=== PATIENT | male | born 1990 | race African-American/Black ===

== ENCOUNTER 2019-03-15 16:55 | Emergency (ER) | payer SELFPAY ==
[~2019-03-15] VITALS: Ht 167.6 cm; Wt 80.0 kg
[~2019-03-15 16:55] MED LIST: AMOXICILLIN500 MG OR; AMOXICILLIN500 MG PO; AMOXIL500 MG OR; BUPROPION150 MG PO; CEPHALEXIN500 MG PO; CLARITIN10 M1 PO; CLARITIN10 M2 OR; CORTISPORIN OP7.5 ML OP; FLONASE NASAL50 MCG; HYDROXYZ HCL25 MG OR; NO MEDS; OTC ALLERGY MEDS; ULTRAM50 M1 PO
[2019-03-15] MEDS ORDERED: AMOXICILLIN500 M2 PO (17:26)
[2019-03-15 18:17] VITALS: BP 136/89
== END 2019-03-15 18:25 | disposition home or self-care (01) | DRG 159 ==
LOC: ED 16:55
DX: K08.89 Other specified disorders of teeth and supporting structures (principal); S16.1XXA Strain of muscle, fascia and tendon at neck level, initial encounter; X58.XXXA Exposure to other specified factors, initial encounter

== ENCOUNTER 2019-04-19 12:49 | Emergency (ER) | payer SELFPAY ==
[~2019-04-19] VITALS: Ht 167.6 cm; Wt 77.3 kg
[~2019-04-19 12:49] MED LIST changes: +AMOXICILLIN500 M2 PO
[2019-04-19] MEDS ORDERED: AMOXICILLIN500 MG PO ×2 (13:29→13:54)
[2019-04-19 13:59] VITALS: BP 121/81
== END 2019-04-19 13:59 | disposition home or self-care (01) | DRG 159 ==
LOC: ED 12:49
DX: K04.7 Periapical abscess without sinus (principal); K08.89 Other specified disorders of teeth and supporting structures

== ENCOUNTER 2019-07-24 00:25 | Emergency (ER) | payer SELFPAY ==
[~2019-07-24] VITALS: Ht 167.6 cm; Wt 82.0 kg
[2019-07-24 01:55] LABS: BARBITURATES NEGATIVE (NEGATIVE); COCAINE NEGATIVE (NEGATIVE); METHADONE NEGATIVE (NEGATIVE); TETRAHYDROCANNABIONOL NEGATIVE (NEGATIVE); TRICYLIC ANTIDEPRESSANTS NEGATIVE (NEGATIVE)
[2019-07-24 01:56] LABS: OXCYCODONE NEGATIVE (NEGATIVE)
[2019-07-24] MEDS ORDERED: IBUPROFEN600 MG PO (02:58)
[2019-07-24] MEDS ORDERED: ALLERGY EYE DRO1 DRO OU (02:58)
[2019-07-24] MEDS ORDERED: BENADRYL 50MG C50 MG PO (02:58)
[2019-07-24 03:38] VITALS: BP 121/70
== END 2019-07-24 03:38 | disposition home or self-care (01) | DRG 125 ==
LOC: ED 00:25
PROVIDERS: Emergency Medicine
DX: H10.9 Unspecified conjunctivitis (principal); F19.10 Other psychoactive substance abuse, uncomplicated

== ENCOUNTER 2020-10-24 06:05 | Emergency (ER) | payer SELFPAY ==
[~2020-10-24] VITALS: Ht 165.1 cm; Wt 86.0 kg
[~2020-10-24 06:05] MED LIST changes: +ALLERGY EYE DRO1 DRO OU; +BENADRYL 50MG C50 MG PO; +IBUPROFEN600 MG PO
[2020-10-24 08:10] VITALS: BP 116/73
== END 2020-10-24 08:12 | disposition left against medical advice (07) | DRG 392 ==
LOC: ED 06:05
DX: R11.2 Nausea with vomiting, unspecified (principal); R51.9 Headache, unspecified

== ENCOUNTER 2020-12-19 13:35 | Emergency (ER) | payer SELFPAY ==
[~2020-12-19] VITALS: Ht 165.1 cm; Wt 84.0 kg
[2020-12-19] MEDS ORDERED: AMOXICILLIN500 M2 PO (15:22)
[2020-12-19 15:27] VITALS: BP 137/83
== END 2020-12-19 16:25 | disposition home or self-care (01) | DRG 816 ==
LOC: ED 13:35
DX: R59.0 Localized enlarged lymph nodes (principal); Z20.822 Contact with and (suspected) exposure to COVID-19

== ENCOUNTER 2023-05-13 17:16 | Emergency (ER) | payer SELFPAY ==
[~2023-05-13] VITALS: Ht 165.1 cm; Wt 82.0 kg
[2023-05-13 17:35] VITALS: BP 106/75
[2023-05-13 17:45] VITALS: BP 108/68
[2023-05-13 18:00] VITALS: BP 120/76
[2023-05-13 18:15] VITALS: BP 115/71
[2023-05-13 18:30] VITALS: BP 115/76
[2023-05-13 18:45] VITALS: BP 112/85
== END 2023-05-13 18:54 | disposition home or self-care (01) | DRG 179 ==
LOC: ED 17:16
DX: U07.1 COVID-19 (principal); R50.9 Fever, unspecified; R52 Pain, unspecified

== ENCOUNTER 2024-06-05 20:30 | Emergency (ER) | payer SELFPAY ==
[~2024-06-05] VITALS: Ht 167.6 cm; Wt 82.0 kg
[2024-06-05 21:04] VITALS: BP 136/77
[2024-06-05 21:15] VITALS: BP 114/78
[2024-06-05] MEDS ORDERED: HYDROcodone POLISTIREX/CHLORPH 5 ML UDC PO ONE (21:15)
[2024-06-05] MEDS ORDERED: ACETAMINOPHEN 500 MG TAB PO ONE (21:15)
[2024-06-05] MEDS ORDERED: IBUPROFEN 600 MG/TAB PO ONE (21:15)
[2024-06-05] MEDS ORDERED: ACTIVATED CHARCOAL 25 GM LIQ PO ONE (21:30)
[2024-06-05 22:06] LABS: BASO% 0.2 % (0-3); EOS% 2.6 % (0-8); IMMATURE GRANULOCYTES 0.1 % (0.0-5.0); LYMPH% 17.4 % (15-41); MEAN CELL VOLUME 87.1 fL CALC (80.0-100.0); MEAN CORPUSCULAR HGB 29.5 pG CALC (26.0-32.0); MEAN CORPUSCULAR HGB CONC 33.9 g/dL CAL (32.0-36.0); MONO% 10.5 % (2-13); NEUT# 6.86 thou/uL (1.82-7.42); NEUT% 69.2 % (42-76); RED BLOOD COUNT 4.64 mill/uL (4.70-6.10); RED CELL DISTRI WIDTH 12.9 % (11.5-15.5)
[2024-06-05 22:07] LABS: HEMATOCRIT 40.4 % (39.0-50.0); HEMOGLOBIN 13.7 g/dl (14.0-18.0)
[2024-06-05 22:24] VITALS: BP 107/75
[2024-06-05 22:30] VITALS: BP 101/70
[2024-06-05 22:45] VITALS: BP 102/59
[2024-06-06 00:06] VITALS: BP 102/59
== END 2024-06-06 00:06 | disposition home or self-care (01) | DRG 153 ==
LOC: ED 20:30
PROVIDERS: Family Medicine
DX: J06.9 Acute upper respiratory infection, unspecified (principal); Z20.822 Contact with and (suspected) exposure to COVID-19